=== PATIENT | female | born 1955 | race Caucasian/White ===

== ENCOUNTER 2016-10-21 20:35 | Emergency (ER) | payer OTHER ==
[~2016-10-21 20:35] MED LIST: CALCIUM600 M2 PO; GLUCOSAMINE1000 MG PO; LEXAPRO10 M1 PO; MULTI-DAY VITA1 EACH PO; PRILOSEC OTC20 M1 PO; ZOCOR10 M1 PO
--- NOTE | 2016-10-21 21:44 | ED GI/GU/ABDOMINAL COMPLAINT ---
History of Present Illness General Chief Complaint: Female Urogenital Problems Stated Complaint: KIDNEY STONE Source: patient, family, old records Exam Limitations: no limitations Vital Signs & Intake/Output Vital Signs & Intake/Output Vital Signs Date Time Temp Pulse Resp B/P Pulse O2 O2 Flow FiO2 Ox Delivery Rate 10/21 2338 96.0 95 18 152/67 97 Room Air 10/212 97.0 76 16 154/84 97 Room Air Allergies Coded Allergies: No Known Allergies (07/13/16) Reconcile Medications Calcium Carbonate (Calcium) (Unknown Strength) TABLET (Unknown Dose) PO DAILY SUPPLEMENT (Reported) Escitalopram Oxalate (Lexapro) 10 MG TABLET 1 TAB PO DAILY DEPRESSION ( Reported) Glucosamine Sulfate 2KCL (Glucosamine) (Unknown Strength) TABLET (Unknown Dose ) PO DAILY SUPPLEMENT (Reported) Ibuprofen 600 MG TABLET 1 TAB PO Q6PRN PRN pain with food Multivitamin (Multi-Day Vitamins) 1 EACH TABLET 1 TAB PO DAILY SUPPLEMENT ( Reported) Omeprazole Magnesium (Prilosec Otc) 20 MG TABLET.DR 1 TAB PO DAILY REFLUX ( Reported) Ondansetron (Zofran Odt) 4 MG TAB.RAPDIS 1 TAB SL TID PRN nausea, vomiting Oxycodone HCl/Acetaminophen (Percocet 5-325 MG Tablet) 5 MG-325 MG TABLET 1-2 TAB PO Q6-PRN PRN severe pain Simvastatin (Zocor*) 10 MG TABLET 1 TAB PO DAILY CHOLESTEROL (Reported) Triage Note: TRIAGE; PT TO ED WITH LT SIDED FLANK PAIN SINCE TUESDAY AFTERNOON. DENIES ANY URINARY S/S. PT STATES SHE WENT TO HER DOCTOR TODAY AND THEY THOUGHT SHE HAS A KIDNEY STONE, WENT TO [facility] ER TODAY FOR AN U/S, DID NOT GET THE RESULTS BACK YET BUT HAS STARTED VOMITING AND ADVISED TO COME TO ER. LAST EPISODE OF VOMITING 8PM. DENIES ANY BLOOD. DENIES ANY HX OF KIDNEY STONES. Triage Nurses Notes Reviewed? yes LMP (ages 10-50): post menopausal ? n Is pt currently ? No Onset: 4 days Duration: day(s): Timing: recent history Quality/Severity: aching, dullness, severe, vomiting Severity Numbers: 8 Location: left flank Radiation: no radiation Activities at Onset: none Prior Abdominal Problems: none Past Sexual History: Unobtainable at this time Modifying Factors: Improves With: other (tramadol). Associated Symptoms: abdominal pain, loss of appetite, lower back pain, nausea/ vomiting HPI: 4 days prior to admission patient planes of intermittent left flank pain moderate to severe quality nonradiating improved with tramadol. Today the pain became worse with nausea vomiting diaphoresis. She denies fever chills chest pain cough shortness of breath headache dysuria rash bleeding. Past History Travel History Traveled to [place] past 21 day No Medical History Any Pertinent Medical History? see below for history Neurological: NONE EENT: NONE Cardiovascular: hyperlipidemia Respiratory: NONE Gastrointestinal: GERD, hiatal hernia Hepatic: NONE Renal: NONE Musculoskeletal: NONE Psychiatric: depression Endocrine: NONE Blood Disorders: NONE Cancer(s): NONE Influenza Vaccine: 07/15/16 Surgical History Surgical History: cholecystectomy, D and c Psychosocial History Who do you live with Spouse Services at Home None What is your primary language Kazakh Tobacco Use: Never used Family History Family History, If Any: MOTHER FH: diabetes mellitus SISTER FH: diabetes mellitus Hx Contributory? No Review of Systems Review of Systems Constitutional: Reports: no symptoms. EENTM: Reports: no symptoms. Respiratory: Reports: no symptoms. Cardiovascular: Reports: no symptoms. GI: Reports: see HPI, abdominal pain, nausea, vomiting. Genitourinary: Reports: no symptoms. Musculoskeletal: Reports: no symptoms. Skin: Reports: no symptoms. Neurological/Psychological: Reports: no symptoms. Hematologic/Endocrine: Reports: no symptoms. Immunologic/Allergic: Reports: no symptoms. All Other Systems: Reviewed and Negative Physical Exam Physical Exam General Appearance: well developed/nourished, alert, awake, anxious, moderate distress, obese Head: atraumatic, normal appearance Eyes: Bilateral: normal appearance, PERRL, EOMI, normal inspection. Ears, Nose, Throat, Mouth: hearing grossly normal, moist mucous membrane Neck: normal inspection, supple, full range of motion, normal alignment Respiratory: normal breath sounds, chest non-tender, no respiratory distress, quiet respiration, lungs clear Cardiovascular: regular rate/rhythm, normal peripheral pulses, norml femoral pulses equa Peripheral Pulses: 4+ carotid (R), 4+ carotid (L), 2+ radial (R), 2+ radial (L) Gastrointestinal: normal bowel sounds, soft, non-tender, no organomegaly Back: normal inspection, normal range of motion, no vertebral tenderness Extremities: normal range of motion, no ligament instability Neurologic/Psych: no motor/sensory deficits, awake, alert, oriented x 3, normal gait, normal mood/affect, 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 No Severe Sepsis Present: No Septic Shock Present: No Progress Differential Diagnosis: diverticulitis, kidney stone, UTI/pyelo Plan of Care: Orders Procedure Date/time Status LIPASE 10/21 2136 Complete COMPREHENSIVE METABOLIC PANEL 10/21 2136 Complete CBC WITHOUT DIFFERENTIAL 10/21 2136 Complete URINALYSIS 10/21 2058 Complete Laboratory Tests 10/21/162149: Anion Gap 16, Estimated GFR > 60, BUN/Creatinine Ratio 13.3, Glucose 111 H, Calcium 9.6, Total Bilirubin 0.9, AST 21, ALT 25, Alkaline Phosphatase 73, Total Protein 8.2, Albumin 4.5, Globulin 3.7, Albumin/Globulin Ratio 1.2, Lipase 122, CBC w Diff NO MAN DIFF REQ, RBC 4.64, MCV 87.4, MCH 29.1, RDW 13.5, MPV 8.6, Gran % 62.7, Lymphocytes % 29.1, Monocytes % 6.7, Eosinophils % 1.0, Basophils % 0.5, Absolute Granulocytes 4.5, Absolute Lymphocytes 2.1, Absolute Monocytes 0.5 , Absolute Eosinophils 0.1, Absolute Basophils 0, PUBS MCHC 33.3 10/21/16 2100: Urinalysis LIGHT H, Urine Color YEL, Urine Clarity CLEAR, Urine pH 7.0, Ur Specific [place] 1.010, Urine Protein NEG, Urine Ketones NEG, Urine Nitrite NEG, Urine Bilirubin NEG, Urine Urobilinogen 0.2, Ur Leukocyte Esterase NEG, Ur Microscopic SEDIMENT EXAMINED, Urine WBC 1-3 H, Ur Epithelial Cells MOD H, Urine Hemoglobin TRACE-LYSED, Urine Glucose NEG Diagnostic Imaging: Viewed by Me: CT Scan. Discussed w/RAD: CT Scan. Radiology Impression: no acute abnormality Initial ED EKG: none Departure Departure Time of Disposition: 2337 Disposition: HOME OR SELF CARE Condition: Stable Clinical Impression Primary Impression: Left flank pain Secondary Impressions: Acute hyponatremia, Nausea and vomiting in adult Referrals: Bianca SEARS MD (PCP/Family) Departure Forms: Customer Survey General Discharge Information Prescriptions: Current Visit Scripts Ibuprofen 1 TAB PO Q6PRN PRN pain #50 TAB with food Ondansetron (Zofran Odt) 1 TAB SL TID PRN nausea, vomiting #15 TAB Oxycodone HCl/Acetaminophen (Percocet 5-325 MG Tablet) 1-2 TAB PO Q6-PRN PRN severe pain #15 TAB
[2016-10-21 22:06] LABS: ABSOLUTE BASOPHIL COUNT 0 /CUMM (0.0-0.2); ABSOLUTE EOSINOPHIL COUNT 0.1 /CUMM (0.0-0.7); ABSOLUTE GRANULOCYTE CT 4.5 /CUMM (1.4-6.5); ABSOLUTE LYMPH COUNT 2.1 /CUMM (1.2-3.4); ABSOLUTE MONOCYTE COUNT 0.5 /CUMM (0.10-0.60); BASOPHIL % 0.5 % (0.0-2.0); GRANULOCYTE % 62.7 % (42.2-75.2); HEMATOCRIT 40.6 % (37-47); MEAN CORPUSCULAR HGB 29.1 PG (27.0-31.0); MEAN CORPUSCULAR HGB CONC 33.3 G/DL (33.0-37.0); MEAN CORPUSCULAR VOLUME 87.4 FL (81.0-99.0); MEAN PLATELET VOLUME 8.6 FL (7.4-10.4); PLATELET COUNT 308 /CUMM (130-400); RBC DISTRIBUTION WIDTH 13.5 % (11.5-14.5); RED BLOOD CELL CT 4.64 /CUMM (4.20-5.40); WHITE BLOOD CELL COUNT 7.2 /CUMM (4.8-10.8)
--- NOTE | 2016-10-21 23:09 | CT SCAN REPORT ---
EXAMINATION: CT ABDOMEN AND PELVIS WITHOUT CONTRAST CLINICAL INFORMATION: Left flank pain. COMPARISON: Renal ultrasound from today. No prior CT. TECHNIQUE: Multidetector volumetric imaging was performed from the superior aspect of the liver through the pubic symphysis. Sagittal and coronal reformatted images were obtained on the technologist's workstation. DLP: 512 mGy-cm. FINDINGS: LUNG BASES: The visualized lung bases are unremarkable. LIVER, GALLBLADDER, AND BILIARY TREE: The liver is normal in size, shape, and attenuation. No focal hepatic lesion or biliary ductal dilatation is present. The gallbladder is not seen and is likely surgically absent. PANCREAS: Unremarkable. SPLEEN: Unremarkable. ADRENAL GLANDS: Unremarkable. KIDNEYS AND URETERS: The kidneys are normal in size, shape, and attenuation. No hydronephrosis, hydroureter, or calculi seen. No perinephric stranding. BLADDER: Unremarkable. GASTROINTESTINAL TRACT: Small hiatal hernia. The stomach is otherwise unremarkable. The small bowel is unremarkable. No dilated loops of bowel or evidence of obstruction. No colonic wall thickening or inflammatory changes. Scattered diverticulosis without evidence of diverticulitis. No free air or free fluid. ABDOMINAL WALL: No significant hernia is appreciated. LYMPH NODES: Normal. VASCULAR: Unremarkable. PELVIC VISCERA: The uterus and adnexa are unremarkable. OSSEOUS STRUCTURES: No acute or suspicious osseous abnormality. Mild multilevel degenerative changes throughout the spine. Mild degenerative changes of the hips. IMPRESSION: No acute findings of the abdomen or pelvis. No hydronephrosis or nephrolithiasis.
[2016-10-21 23:38] VITALS: BP 152/67
[2016-10-21] MEDS ORDERED: ZOFRAN ODT4 M1 SL (23:42)
[2016-10-21] MEDS ORDERED: PERCOCET 5-3251 EACH PO (23:42)
[2016-10-21] MEDS ORDERED: IBUPROFEN600 M1 PO (23:42)
== END 2016-10-22 00:03 ==
LOC: ERH 20:35
PROVIDERS: Emergency Medicine
DX: R10.32 Left lower quadrant pain (principal); E87.1 Hypo-osmolality and hyponatremia; R11.2 Nausea with vomiting, unspecified
CPT/HCPCS: 74176; 81001; 96361; 96374; 96375; J1885; J2405; J3101